=== PATIENT | female | born 1985 | race Native Hawaiian/Other Pacific Islander ===

== ENCOUNTER 2016-07-20 00:08 | Emergency (ER) | payer OTHER ==
[2016-07-20 00:20] VITALS: RESP 20
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
[2016-07-20] MEDS ORDERED: HYDROmorphone 1 MG/ML 1 ML SYRINGE IVP STA ×2 (00:34→01:08)
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
[2016-07-20 02:29] VITALS: BP 188/72; PULSE 114; TEMP 98.1
== END 2016-07-20 02:31 | disposition other institution (70) ==
LOC: EC 00:08
DX: S82.251A Displaced comminuted fracture of shaft of right tibia, initial encounter for closed fracture (principal); S82.451A Displaced comminuted fracture of shaft of right fibula, initial encounter for closed fracture; V43.62XA Car passenger injured in collision with other type car in traffic accident, initial encounter; Y92.410 Unspecified street and highway as the place of occurrence of the external cause
CPT/HCPCS: 99285; 96374; 96376; 29505; 73590; 73600; J1170

== ENCOUNTER → 2019-04-21 | Outpatient (CLI) | payer BC ==
--- NOTE | 2019-04-21 11:38 | MM ---
Reason for exam: screening (asymptomatic). Baseline mammogram. History: Family history of breast cancer in maternal aunt. Took hormonal contraceptives for 6 months. Physical Findings: Nurse did not find any significant physical abnormalities on exam. MG Screening Mammo w CAD Bilateral CC and MLO view(s) were taken. XCCL view(s) were taken of the right breast. There are scattered fibroglandular densities. No suspicious abnormality. These results were verbally communicated with the patient and result sheet given to the patient on 04/21/19. ASSESSMENT: Negative, BI-RAD 1 RECOMMENDATION: Routine screening mammogram of both breasts at age 38.
== END | disposition home or self-care (01) ==
LOC: RADMAMWWP 10:46
PROVIDERS: ATTEND Obstetrics & Gynecology
DX: Z12.31 Encounter for screening mammogram for malignant neoplasm of breast (principal)
CPT/HCPCS: 77067

== ENCOUNTER 2020-02-26 13:54 | Emergency (ER) | payer BC ==
--- NOTE | 2020-02-26 14:12 | ED ---
Lower Extremity Injury HPI - General Source: patient Mode of arrival: wheelchair Limitations: no limitations <Dionte Limon - Last Filed: 02/26/20 16:00> <Deepika Edwards - Last Filed: 02/27/20 13:47> - General Chief Complaint: Extremity Injury, Lower Stated Complaint: Poss blood clot- R leg Time Seen by Provider: 02/26/20 14:11 - History of Present Illness Initial Comments: Patient is a 34-year-old female presenting to the emergency department with a chief complaint right leg swelling. States this is the not well for the past few months with gradual increase in swelling. Patient reports most of the swelling is located to the anterior aspect of the right lower leg with no surrounding erythema or any discharge. Patient reports previous ankle fracture followed by surgery and her right leg. States she is always had swelling in the region of baseline. This is new onset swelling that she is currently experiencing along with pain particularly with relation. No joint pain. She denies any chest pain or shortness of breath. She also reports there is some eczema near the ankle although that flares up from time to time. (Dionte Limon) - Related Data Previous Rx's Medication Instructions Recorded Ibuprofen [Motrin] 600 mg PO Q6HR PRN #20 tab 08/06/14 Cephalexin [Keflex] 500 mg PO Q6HR 5 Days #20 cap 02/26/20 Allergies Allergy/AdvReac Type Severity Reaction Status Date / Time No Known Allergies Allergy Verified 02/26/20 14:00 Review of Systems ROS Other: All systems not noted in ROS Statement are negative. <Dionte Limon - Last Filed: 02/26/20 16:00> ROS Other: All systems not noted in ROS Statement are negative. <Deepika Edwards - Last Filed: 02/27/20 13:47> ROS Statement: Those systems with pertinent positive or pertinent negative responses have been documented in the HPI. Past Medical History Past Medical History: No Reported History Additional Past Medical History / Comment(s): allergies History of Any Multi-Drug Resistant Organisms: MRSA Date of last positivie culture/infection: R ankle 2017 Past Surgical History: No Surgical Hx Reported Additional Past Surgical History / Comment(s): R ankle, pyloric stenosis Past Psychological History: Anxiety, Depression Smoking Status: Former smoker Past Alcohol Use History: None Reported Past Drug Use History: None Reported <Dionte Limon - Last Filed: 02/26/20 16:00> General Exam Limitations: no limitations General appearance: alert, in no apparent distress, obese Head exam: Present: atraumatic, normocephalic, normal inspection Eye exam: Present: normal appearance, PERRL, EOMI Pupils: Present: normal accommodation ENT exam: Present: normal exam, normal oropharynx, mucous membranes moist Neck exam: Present: normal inspection, full ROM. Absent: tenderness Respiratory exam: Present: normal lung sounds bilaterally. Absent: respiratory distress, wheezes, rales Cardiovascular Exam: Present: regular rate, normal rhythm, normal heart sounds Extremities exam: Present: full ROM, tenderness (Tenderness along the anterior aspect of the right lower leg near the region of swelling), normal capillary refill, pedal edema (+1 bilaterally nonpitting.), joint swelling (Mild on the right ankle at baseline.), calf tenderness (Positive Homans right lower extremity), other (+2 dorsalis pedis and posterior tibias bilaterally. Sensation intact in the right lower extremity.). Absent: normal inspection (Swelling along the anterior aspect right lower leg measuring approximately 7 cm in diameter. No overlying cellulitic skin changes. No discharge noted. There is also eczema near the ankle along with scarring from a previous surgery.) Back exam: Present: normal inspection, full ROM. Absent: tenderness, CVA tenderness (R), CVA tenderness (L) Neurological exam: Present: alert, oriented X3, normal gait Psychiatric exam: Present: normal affect, normal mood Skin exam: Present: warm, dry, intact <Dionte Limon - Last Filed: 02/26/20 16:00> Course Vital Signs 02/26/20 02/26/20 13:58 16:08 Temperature 98 F 98.3 F Pulse Rate 94 84 Respiratory 18 16 Rate Blood Pressure 143/88 151/91 O2 Sat by Pulse 99 98 Oximetry Medical Decision Making <Dionte Limon - Last Filed: 02/26/20 16:00> <Deepika Edwards - Last Filed: 02/27/20 13:47> - Medical Decision Making Patient is a 34 year old female presenting to the emergency room with a chief complaint of leg swelling. Exam patient does appear to have a region of swelling on the anterior aspect for right lower leg with no overlying significant changes. Ultrasound right lower extremity reveals no evidence of a DVT. There is a large right inguinal lymph node. There also appears to be complex fluid collection anterior and below the knee on the right lower extremity. Considering there is no signs of infection at this time. No incision and drainage will be performed. I advised the patient to follow with manufacture specialist. She's had no trauma to the region. Should return parameters were thoroughly discussed the patient is an attending agreeable. Vitals are stable. No chest pain or shortness of breath. Case discussed with physician. (Dionte Limon) I was available for consultation in the emergency department. The history and physical exam were done by the midlevel provider. I was consulted for this patients care. I reviewed the case with the midlevel provider and based on their presentation of the patient, I agree with the assessment, medical decision making and plan of care as documented. Chart was dictated using [employer] dictation software. Attempts were made to correct any dictation errors however some typographical errors may persist. Patient was seen during a national state of emergency due to the Covid-19 pandemic. (Deepika Edwards) Disposition Is patient prescribed a controlled substance at d/c from ED?: No Time of Disposition: 16:02 <Dionte Limon - Last Filed: 02/26/20 16:00> <Deepika Edwards - Last Filed: 02/27/20 13:47> Clinical Impression: Right leg pain, Right leg swelling Disposition: HOME SELF-CARE Condition: Stable Instructions (If sedation given, give patient instructions): Leg Edema (ED) Additional Instructions: Follow-up with manufacture specialist. Return to emergency department if s ymptoms worsen. Prescriptions: Cephalexin [Keflex] 500 mg PO Q6HR 5 Days #20 cap Referrals: Acacia Daniel MD [Primary Care Provider] - 1-2 days Kyler Seay MD [STAFF PHYSICIAN] - 1-2 days
--- NOTE | 2020-02-26 15:28 | US ---
EXAMINATION TYPE: US venous doppler duplex LE RT DATE OF EXAM: 02/26/2020 2:57 PM COMPARISON: NONE CLINICAL HISTORY: dvt r/o. Lump and pain right ferrari, just below the knee, patient denies any trauma SIDE PERFORMED: Right TECHNIQUE: The lower extremity deep venous system is examined utilizing real time linear array sonog williams with graded compression, doppler sonography and color-flow sonography. VESSELS IMAGED: External Iliac Vein (EIV) Common Femoral Vein Deep Femoral Vein Greater Saphenous Vein * Femoral Vein Popliteal Vein Small Saphenous Vein * Proximal Calf Veins (* superficial vessels) Right Leg: no evidence of DVT. lymph node right groin = 3.9 x 2.8cm. within area of lump, right ferrari just below knee, complex anechoic area = 10.2 x 1.5 x 4.1cm IMPRESSION: No evidence of right leg deep vein thrombosis. There is a large right inguinal lymph node . This measures 3 x 1 cm. Complex fluid collection anterior and below the knee.
[2020-02-26 16:14] VITALS: BP 151/91; PULSE 84; RESP 16; TEMP 98.3
== END 2020-02-26 16:38 | disposition home or self-care (01) ==
LOC: EC 13:54
DX: M79.604 Pain in right leg (principal); M79.89 Other specified soft tissue disorders; Z87.891 Personal history of nicotine dependence
CPT/HCPCS: 99283

== ENCOUNTER → 2020-04-03 | Outpatient (CLI) | payer BC ==
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
== END | disposition home or self-care (01) ==
LOC: RADMRIMAIN 07:15
PROVIDERS: ATTEND Orthopaedic Surgery
DX: M25.561 Pain in right knee (principal); Z98.890 Other specified postprocedural states

== ENCOUNTER → 2020-05-23 | Outpatient (CLI) | payer BC ==
[2020-05-23 14:56] LABS: Basophils % (A) 0 %; Eosinophils # (A) 0.1 k/uL (0-0.7); Eosinophils % (A) 2 %; HCT 41.5 % (34.0-46.0); HGB 13.3 gm/dL (11.4-16.0); Lymphocytes % (A) 20 %; MCH 30.1 pg (25.0-35.0); MCHC 32.2 g/dL (31.0-37.0); MCV 93.5 fL (80.0-100.0); Mean Platelet Volume 7.8; Monocytes # (A) 0.3 k/uL (0-1.0); Monocytes % (A) 3 %; Neutrophils # (A) 7.3 k/uL (1.3-7.7); Neutrophils % (A) 74 %; Platelet Count 318 k/uL (150-450); RBC 4.44 m/uL (3.80-5.40); RDW 12.3 % (11.5-15.5); WBC 9.9 k/uL (3.8-10.6)
[2020-05-23 15:07] LABS: Potassium 4.9 mmol/L (3.5-5.1)
== END | disposition home or self-care (01) ==
LOC: LABPAT 13:23
PROVIDERS: ATTEND Orthopaedic Surgery
DX: Z01.818 Encounter for other preprocedural examination (principal); M23.91 Unspecified internal derangement of right knee
CPT/HCPCS: 36415; 80051; 85025; 93005

== ENCOUNTER 2020-05-25 10:47 | Day surgery (SDC) | payer BC ==
[2020-05-22 15:32] VITALS: BMI 46.5
--- NOTE | 2020-05-24 18:43 | HP ---
HISTORY AND PHYSICAL REASON FOR ADMISSION: Surgery scheduled for 05/25/2020 HISTORY OF PRESENT ILLNESS: Inocencia Ramirez is a 35-year-old lady seen with progressive right knee pain. We discussed options for treatment. She elected to proceed with arthroscopy. Consent was obtained. PAST MEDICAL HISTORY: Depression. PAST SURGICAL HISTORY: Ankle surgery, tibial nail, right lower extremity. MEDICATIONS: Daily medications: Flexeril, ibuprofen, Wellbutrin. ALLERGIES: None. SOCIAL HISTORY: Denies tobacco use. PHYSICAL EVALUATION OF THE RIGHT KNEE: Range of motion is 0-120. Tenderness medial joint line. Positive medial Merly's. Ligaments stable. Hip rotation without pain. Distal neurovascular exam intact. RADIOGRAPHS: Right knee radiographs revealed no acute osseous abnormality. MRI of the right knee did reveal a gross tear secondary to metallic artifact. IMPRESSION: 1. Internal derangement, right knee with meniscal tear versus osteochondral tear. 2. Right knee chondromalacia. PLAN: Right knee arthroscopy with partial meniscectomy, possible chondroplasty, partial synovectomy and debridement. Surgery is scheduled for 05/25/2020. MMODL / IJN: [id number] /
[~2020-05-25 10:47] MED LIST: LACTATED RINGERS 1,000 ML IV SCH; ceFAZolin 3 GM in SODIUM CHLORIDE 0.9% 100 ML IVPB PRN
[2020-05-25] MEDS ORDERED: ONDANSETRON 4 MG/2 ML VIAL ONE (11:33)
[2020-05-25] MEDS ORDERED: LIDOCAINE 1% (10MG/ML) FOR IV START INTRADERMA ONE (11:36)
[2020-05-25] MEDS ORDERED: ONDANSETRON 4 MG/2 ML VIAL IVP ONE (11:44)
[2020-05-25] MEDS ORDERED: DEXAMETHASONE SOD PHOSPHATE 4 MG/ML 1 ML VIAL IVP ONE (11:45)
[2020-05-25] MEDS ORDERED: SUCCINYLCHOLINE CHLORIDE 100 MG/5 ML SYR IV ONE (13:13)
[2020-05-25] MEDS ORDERED: fentaNYL (PF) 50 MCG/ML 2 ML AMP ONE (13:13)
[2020-05-25] MEDS ORDERED: PROPOFOL 10 MG/ML 20 ML VIAL IV ONE (13:13)
[2020-05-25] MEDS ORDERED: LIDOCAINE 1% INJ 10MG/ML (20 ML MDV) ONE (13:13)
[2020-05-25] MEDS ORDERED: MIDAZOLAM 2 MG/2 ML VIAL ONE (13:13)
[2020-05-25] MEDS ORDERED: BUPIVACAINE (PF) 0.25% 30 ML VIAL INTRAARTIC ONE (13:18)
[2020-05-25] MEDS ORDERED: LACTATED RINGERS 1,000 ML IV ONE ×2 (13:30)
--- NOTE | 2020-05-25 13:58 | P.OP ---
Date of Procedure: 05/25/20 Preoperative Diagnosis: Internal derangement right knee Postoperative Diagnosis: 1. Tear lateral meniscus right knee 2. Grade 2 chondromalacia medial femoral condyle right knee 3. Reactive synovitis medial, lateral and suprapatellar compartments right knee Procedure(s) Performed: 1. Arthroscopic partial lateral meniscectomy right knee 2. Arthroscopic chondroplasty medial femoral condyle right knee 3. Arthroscopic partial synovectomy medial, lateral and suprapatellar compartments right knee Anesthesia: JOSEA, local Surgeon: Darrel Jalloh Estimated Blood Loss (ml): 5 Pathology: none sent Condition: stable Disposition: PACU Indications for Procedure: 35-year-old patient seen with progressive right knee pain. After having treatment options discussed, she elected to proceed with arthroscopy. Operative Findings: See description of procedure Description of Procedure: Patient was taken to the operative suite. Patient underwent a general anesthetic by the department of anesthesia. Patient was given preoperative antibiotics. The right lower extremity was placed in a well-padded arthroscopic leg cho. The right leg was prepped and draped in the normal sterile orthopedic fashion. A lateral parapatellar and suprapatellar incision was made. Trochars were inserted. Arthroscopy was initiated. Suprapatellar pouch revealed diffuse thick reactive synovitis. The patellofemoral joint appeared to articulate congruently. There was no significant chondromalacia. The scope was guided into the medial gutter. No loose bodies or plica were identified. The scope was then guided into the medial compartment. A medial parapatellar incision was made. Trocar inserted followed by probe. The medial meniscus was probed and found to be stable. There were grade 2 chondromalacia changes of the medial femoral condyle with fairly large osteochondral flap tears. There was thick reactive synovitis anteriorly. I performed a chondroplasty of the medial femoral condyle. I performed a partial synovectomy decompressing the reactive synovitis. The residual osteochondral surface was found to be stable. There was good decompression of the synovitis. Scope and probe were then guided into the intercondylar notch. Cruciates were identified, probed and found to be stable. The scope and probe were then guided into lateral compartment. There was a radial tear in the posterior horn lateral meniscus. The lateral compartment revealed no significant chondromalacia. There was thick reactive synovitis anteriorly. I performed a partial lateral meniscectomy. I performed a partial synovectomy. Shaver was removed. The residual meniscus was stable. There was good decompression of the synovitis. The scope was in guided back into the suprapatellar compartment. I introduced a motorized shaver into the suprapatellar compartment. I performed a partial synovectomy decompressing the reactive synovitis. The shaver was removed. There was good decompression of synovitis. I took one more look on the entire knee, no residual debris. Instruments were now removed from the joint. The joint was infiltrated with .25% Marcaine. Steri-Strips were applied to the portal sites. Sterile dressings were applied. The patient was placed into a KAHLIL hose. No tourniquet was utilized. The patient was awakened, transferred to a bed and taken to recovery stable satisfactory condition.
[2020-05-25] MEDS: HYDROmorphone 0.5 MG/0.5 ML SYRINGE IVP ONE ×3 (14:15→14:52)
[2020-05-25 14:33] VITALS: TEMP 96.9
[2020-05-25] MEDS ORDERED: HYDROcodone/APAP 7.5-325MG 1 EACH TAB ONE (15:49)
[2020-05-25] MEDS ORDERED: HYDROcodone/APAP 7.5-325MG 1 EACH TAB PO ONE (15:50)
[2020-05-25 16:16] VITALS: BP 126/82; PULSE 78; RESP 20
== END 2020-05-25 16:47 | disposition home or self-care (01) ==
LOC: OR 10:47
PROVIDERS: ATTEND Orthopaedic Surgery
DX: M23.251 Derangement of posterior horn of lateral meniscus due to old tear or injury, right knee (principal); M94.261 Chondromalacia, right knee; M65.861 Other synovitis and tenosynovitis, right lower leg; F32.9 Major depressive disorder, single episode, unspecified; Z98.890 Other specified postprocedural states; Z79.899 Other long term (current) drug therapy; Z79.1 Long term (current) use of non-steroidal anti-inflammatories (NSAID); Z91.09 Other allergy status, other than to drugs and biological substances
CPT/HCPCS: 29881; 81025; J2250; J1100; J0690; J2405; J2001; J3010; J0330; J2704; J1170

== ENCOUNTER 2020-09-05 18:46 | Emergency (ER) | payer BC ==
[2020-09-05 19:24] VITALS: TEMP 97.9
--- NOTE | 2020-09-05 20:05 | ED ---
General Adult HPI - General Chief complaint: ENT Stated complaint: Nose bleed Time Seen by Provider: 09/05/20 19:00 Source: patient, RN notes reviewed, old records reviewed Mode of arrival: ambulatory Limitations: no limitations - History of Present Illness Initial comments: This is a 35-year-old female who presents to the emergency department complaini ng of a nosebleed since 5:15. Patient states she's tried to apply pressure but every time she does call continues to bleed. Patient states she's hadbefore but never this bad. Patient denies any trauma to the nose. Patient denies any bleeding disorders. Patient denies any difficulty with short of breath. Patient denies any chest pain or palpitations. Patient denies any headache. - Related Data Home Medications Medication Instructions Recorded Confirmed Cetirizine HCl [Zyrtec] 10 mg PO DAILY 05/22/20 05/25/20 Ibuprofen 800 mg PO DAILY 05/22/20 05/25/20 Montelukast Sodium [Singulair] 10 mg PO DAILY 05/22/20 05/25/20 Previous Rx's Medication Instructions Recorded HYDROcodone/APAP 7.5-325MG [[place] 1 each PO Q6HR PRN #12 tab 05/25/20 7.5] Allergies Allergy/AdvReac Type Severity Reaction Status Date / Time No Known Allergies Allergy Verified 09/05/20 19:24 Review of Systems ROS Statement: Those systems with pertinent positive or pertinent negative responses have been documented in the HPI. ROS Other: All systems not noted in ROS Statement are negative. Past Medical History Past Medical History: No Reported History Additional Past Medical History / Comment(s): allergies History of Any Multi-Drug Resistant Organisms: MRSA Date of last positivie culture/infection: 2017 MDRO Source:: Right Ankle Past Surgical History: Orthopedic Surgery, Uterine Ablation Additional Past Surgical History / Comment(s): Right ankle surgery, Pyloric Stenosis surgery. Past Anesthesia/Blood Transfusion Reactions: No Reported Reaction Past Psychological History: Anxiety, Depression Smoking Status: Former smoker Past Alcohol Use History: None Reported, Rare Past Drug Use History: None Reported - Past Family History Mother Family Medical History: No Reported History General Exam - General Exam Comments Initial Comments: GENERAL Patient is well-developed and well-nourished. Patient is in mild distress. EYES Patient's pupils are equal and round. Extraocular motion is intact NOSE Patient's left naris bleeding profusely unable to see source of bleeding. Placing a clamp on the patient's nose and holding it does stop the bleeding so I believe this bleeding is anterior. SKIN Unremarkable NEURO The patient is alert and oriented 3 PYSCH Patient has normal interpersonal interactions. MUSCULOSKELETAL All 4 extremities have full range of motion. Limitations: no limitations Course Vital Signs 09/05/20 09/05/20 19:22 20:53 Temperature 97.9 F Pulse Rate 103 H 102 H Respiratory 20 18 Rate Blood Pressure 162/95 185/105 O2 Sat by Pulse 94 L 95 Oximetry Procedures - Procedures Initial comment: I put a Rhino Rocket in the patient's left naris patient's. Some discomfort. I only put 5 mL severe each balloon. Medical Decision Making - Medical Decision Making I placed a Rhino Rocket in the patient's left ear. The patient's bleeding and I remove some of the ear prior to discharge because of the discomfort. Patient continued not to have any epistaxis. Disposition Clinical Impression: Epistaxis Disposition: HOME SELF-CARE Instructions (If sedation given, give patient instructions): Nosebleed (ED) Additional Instructions: Patient should follow-up to have Rhino Rocket removed in no more than 3 days preferably follow-up with ENT if possible. Is patient prescribed a controlled substance at d/c from ED?: No Referrals: Darrius Doe MD [STAFF PHYSICIAN] - 1-2 days Acacia Daniel MD [Primary Care Provider] - 1-2 days Time of Disposition: 21:13
[2020-09-05] MEDS ORDERED: OXYMETAZOLINE 0.05% NASL SPRAY 1 SPRAY BOTTLE NASAL STA (20:08)
[2020-09-05] MEDS ORDERED: HYDROmorphone 0.5 MG/0.5 ML SYRINGE IM STA (20:48)
[2020-09-05 20:53] VITALS: RESP 18
[2020-09-05] MEDS ORDERED: cloNIDine HCL 0.1 MG TAB PO STA (21:17)
[2020-09-05] MEDS ORDERED: LORazepam 1 MG TAB PO STA (21:17)
[2020-09-05 21:31] VITALS: BP 181/101; PULSE 98
== END 2020-09-05 21:32 | disposition home or self-care (01) ==
LOC: EC 18:46
DX: R04.0 Epistaxis (principal); F32.9 Major depressive disorder, single episode, unspecified; F41.9 Anxiety disorder, unspecified; Z87.891 Personal history of nicotine dependence
CPT/HCPCS: 99283; 96372; 30901; J1170

== ENCOUNTER → 2020-09-13 | Outpatient (CLI) | payer BC ==
[2020-09-13 21:13] LABS: Hemoglobin A1C 5.2 % (4.0-6.0)
[2020-09-14 01:28] LABS: African American GFR (CKD) 128.3 (60.0-200.0); Albumin 4.5 g/dL (3.80-4.90); Albumin/Globulin Ratio 1.96 (1.60-3.17); BUN/Creat Ratio 22.86 Ratio (12.00-20.00); Calcium 9.2 mg/dL (8.7-10.3); Globulin 2.3 g/dL (1.6-3.3); Non-African American GFR(CKD) 110.7 (60.0-200.0); Potassium 4.7 mmol/L (3.5-5.5); Total Bilirubin 0.4 mg/dL (0.3-1.2); Total Protein 6.8 g/dL (6.2-8.2)
== END | disposition home or self-care (01) ==
LOC: LABWHC1 11:56
PROVIDERS: ATTEND Internal Medicine
DX: E11.9 Type 2 diabetes mellitus without complications (principal); R22.41 Localized swelling, mass and lump, right lower limb; F32.9 Major depressive disorder, single episode, unspecified
CPT/HCPCS: 36415; 80053; 83036

== ENCOUNTER → 2021-07-03 | Outpatient (CLI) | payer BC, OTHER | END | disposition home or self-care (01) | LOC: LABWHC1 13:50 | PROVIDERS: ATTEND Podiatrist | DX: U07.1 COVID-19 (principal) | CPT/HCPCS: 87635; C9803 ==

== ENCOUNTER → 2022-05-13 | Outpatient (CLI) | payer BC ==
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
== END | disposition home or self-care (01) ==
LOC: RADCTMAIN 16:23
PROVIDERS: ATTEND Family Medicine
DX: H53.8 Other visual disturbances (principal); R51.9 Headache, unspecified
CPT/HCPCS: 70450

== ENCOUNTER → 2023-05-16 | Outpatient (CLI) | payer BC ==
--- NOTE | 2023-05-19 07:38 | MM ---
Reason for Exam: Screening (asymptomatic). Last mammogram was performed 4 year(s) and 1 month(s) ago. Patient History: Menarche at age 10. First Full-Term at age 17. Hormonal Contraceptives for 6 months. Maternal aunt had breast cancer. Last menstrual period: Risk Values: Margot 5 year model risk: 0.4%. NCI Lifetime model risk: 7.3%. Prior Study Comparison: 04/21/2019 Bilateral Screening Mammogram, [facility]. Tissue Density: There are scattered fibroglandular densities. Findings: Analyzed By CAD. There is no suspicious group of microcalcifications or new suspicious mass. Overall Assessment: Negative, BI-RAD 1 Management: Screening Mammogram of both breasts in [address] [facility] will attempt to contact patient to return for supplemental views and ultrasound if indicated. Patient should continue monthly self-breast exams. A clinical breast exam by your physician is recommended on an annual basis. This exam should not preclude additional follow-up of suspicious palpable abnormalities. Note on Margot scores and lifetime risk: 1. A Margot score greater than 3% is considered moderate risk. If this is the case, consider specialist referral to assess eligibility for a risk reducing agent. 2. If overall lifetime risk for the development of breast cancer is 20% or higher, the patient may qualify for future screening with alternating mammogram and breast MRI. Electronically signed and approved by: Barrera Arreola DO
== END | disposition home or self-care (01) ==
LOC: RADMAMWWP 08:27
PROVIDERS: ATTEND Family Medicine
DX: Z12.31 Encounter for screening mammogram for malignant neoplasm of breast (principal); Z80.3 Family history of malignant neoplasm of breast
CPT/HCPCS: 77067

== ENCOUNTER → 2023-10-06 | Outpatient (CLI) | payer BC ==
[~2023-10-06] MED LIST changes: -LACTATED RINGERS 1,000 ML IV SCH; +REGADENOSON 0.4 MG/5 ML SYRINGE IV PRN; -ceFAZolin 3 GM in SODIUM CHLORIDE 0.9% 100 ML IVPB PRN
--- NOTE | 2023-10-06 10:43 | CA ---
Lexiscan Nuclear Stress Test Report Name: Inocencia Ramirez Exam Date: 10/06/2023 10:10 Exam Location: [facility] Ht (in): 65 Wt (lb): 276 BSA: 2.27 Ordering Phys: Jeremias Mota MD Referring Phys: JEREMIAS MOTA Technologist: Aquiles Ingram Age: 38 Gender: F : 1985 Procedure CPT: Indications: R00.2 palpitations ICD-10 Codes: Patient History: Medications: Meds past 24 hrs: Pretest Chest Pain: STRESS TEST Lexiscan Protocol Exercise Duration (min:sec): 02:[address] Depressions (mm): Angina Score: Stephens Score: Resting HR (bpm): 66 Peak HR (bpm): 102 Resting BP (mmHg): 127 / 78 Peak BP (mmHg): 152 / 84 MPHR: 180 Target HR: 153 % MPHR: 57 METS: 1.0 Total Dose: Peak Dose: Atropine: Double Product: 91838 BP Response: Stress Termination: PROTOCOL COMPLETE Stress Symptoms: SLIGHT BACK PAIN "3" OUT OF A 10. FELT BETTER TOWARDS THE END Stress Summary: ECG ANALYSIS Resting ECG: Sinus rhythm normal axis normal and was Stress ECG: Patient was given intravenous Lexiscan as a protocol did not have chest pain or diagnostic ST segment depression CONCLUSIONS Negative stress test by EKG criteria Cardiolite portion of the stress test will be reported separately Dr. Elton Fitch MD (Electronically Signed) Final Date: 06 October 2023 10:42
--- NOTE | 2023-10-06 13:06 | NM ---
EXAMINATION TYPE: NM stress lexiscan cardiolite DATE OF EXAM: 10/06/2023 COMPARISON: NONE CLINICAL INDICATION: Female, 38 years old with history of R00.2 palpitations; TECHNIQUE: After the intravenous administration of 10.5 mCi Tc 99m Sestamibi - Cardiolite resting SP ECT images acquired 55 minutes post injection. The patient received 0.4mg Lexiscan, 25.7 mCi Tc 99m Sestamibi - Stress images obtained [address] injection FINDINGS: Review of stress and rest SPECT images demonstrates decreased perfusion along the anterior wall which is more pronounced on rest suggesting attenuation artifact. No discrete reversibility is seen. Gated analysis shows normal wall motion with an estimated left ventricular ejection fraction of 69 %. TID is calculated at 0.91, within normal limits. IMPRESSION: Prominent attenuation artifact along the anterior wall. No convincing scintigraphic evide nce for reversible ischemia.
== END | disposition home or self-care (01) ==
LOC: RADNMMAIN 08:35
PROVIDERS: ATTEND Family Medicine
DX: I47.10 Supraventricular tachycardia, unspecified (principal); R00.2 Palpitations; R94.31 Abnormal electrocardiogram [ECG] [EKG]
CPT/HCPCS: 93017; 78452; A9500; J2785